=== PATIENT | female | born 1970 | race Caucasian/White ===

== ENCOUNTER 2017-06-17 08:22 | Day surgery (SDC) | payer OTHER ==
[2017-06-16 10:57] VITALS: BMI 39.4
--- NOTE | 2017-06-17 11:20 | HP ---
Past Medical History - Primary Care Physician PCP:: Venu Smith - Admission Chief Complaint: 41yo P1 with menorrhagia admitted for hysteroscopy, D&C History of Present Illness: The pt reports very heavy menses, bleeding through pads and tampons. The menses interfere with her normal/planned activities. History Source: Patient, Medical Record Limitations to Obtaining History: No Limitations - Past Medical History PARAMEDICAL AIDE: No: Alzheimer's, CVA, Dementia, Migraine, Multiple Sclerosis, Peripheral Neuropathy, Parkinson's, Seizure, Syncope, TIA, Vertigo, Other Cardiovascular: No: AFIB, Aneurysm, Aortic Insufficiency, Aortic Stenosis, CAD, CHF, Deep Vein Thrombosis, HTN, Hyperlipdemia, [place], Mitral Insufficiency, Mitral Stenosis, Murmur, Pulmonary Hypertension, Other Pulmonary: Yes: Asthma Gastrointestinal: No: Ascites, Cancer, Constipation, Crohn's Disease, Diverticulitis, Diverticulosis, Esophageal Varices, Gastritis, GERD, GI Bleed, Hemorrhoids, Hiatal Hernia, Inflamatory Bowel Disease, Irritable Bowel Disease, Pancreatitis, Peptic Ulcer Disease, Ulcerative Colitis, Other Hepatobiliary: No: Cirrhosis, Cholelithiasis, Cholecystitis, Choledocholithiasis , Hepatitis A, Hepatitis B, Hepatitis C, Other Renal/: No: Renal Failure, Renal Inusuff, BPH, Cancer, Hematuria, Hemodialysis , Neurogenic Bladder, Renal Calculi, UTI, Other Reproductive: Yes: Fibroids ...: 3 ...Para: 1 () ...Spon : 1 ...Induced : 1 Heme/Onc: No: Anemia, B12 Deficiency, Bleeding Disorder, Cancer, Current Chemotherapy, Current Radiation Therapy, Hemochromatosis, Hypercoaguable State, Myeloproliferative Synd, Sickle Cell Disease, Sickle Cell Trait, Thrombocytopenia, Other Infectious Disease: No: AIDS, C-Diff, Herpes Zoster, HIV, MRSA, STD's, Tuberculosis, VREF, Other Psych: No: Addictions, Anxiety, Bipolar, Depression, Panic, Psychosis, Schizophrenia, Other Musculoskeletal: No: Bursitis, Chronic low back pain, Hemiparesis, Hemiplegia, Osteoarthritis, Paraplegia, Other Rheumatology: No: Fibromyalgia, Gout, Lupus, Rheumatoid Arthritis, Sarcoidosis, Vasculitis, Other ENT: No: Allergic Rhinitis, Sinusitis, Other Endocrine: No: Prashanth's Disease, Williamson's Disease, Diabetes Insipidus, Diabetes Mellitus, Hyperparathyroidism, Hyperthyroidism, Hypothyroidism, Osteopenia, SIADH, Other Dermatology: No: Basal Cell, Cellulitis, Eczema, Melanoma, Psoriasis, Squamous Cell, Other Additional Medical History: Obesity, glaucoma - Past Surgical History Past Surgical History: Yes: Bariatric Surgery (gastric sleeve, Breast reduction , BTL, Abdominoplasty), Hx Myomectomy: No Hx Transabdominal Cerclage: No - Smoking History Smoking history: Former smoker Have you smoked in the past 12 months: No If you are a former smoker, when did you quit?: 15YRS AGO - Alcohol/Substance Use Hx Alcohol Use: Yes (OCCAS) History of Substance Use: reports: None - Social History ADL: 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 of Recent Travel: No Home Medications - Allergies Allergies/Adverse Reactions: Allergies Allergy/AdvReac Type Severity Reaction Status Date / Time No Known Allergies Allergy Verified 06/17/17 08:57 - Home Medications Home Medications: Ambulatory Orders Bimatoprost [Lumigan] 1 drop OU HS 01/14/14 Family Disease History - Family Disease History Family Disease History: Diabetes: Mother (Breast cancer at 64), CA: Father ( renal cancer), Mother, Respiratory: Father Review of Systems - Review of Systems Constitutional: reports: No Symptoms Eyes: reports: No Symptoms HENT: reports: No Symptoms Neck: reports: No Symptoms Cardiovascular: reports: No Symptoms Respiratory: reports: Orthopnea Gastrointestinal: reports: No Symptoms Genitourinary: reports: No Symptoms Breasts: reports: No Symptoms Reported Musculoskeletal: reports: No Symptoms Integumentary: reports: No Symptoms Neurological: reports: No Symptoms Endocrine: reports: No Symptoms Hematology/Lymphatic: reports: No Symptoms Psychiatric: reports: No Symptoms Pain Intensity: 0 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 Vital Signs: Vital Signs Temperature 97.3 F L 06/17/17 08:56 Pulse Rate 63 06/17/17 08:56 Respiratory Rate 20 06/17/17 08:56 Blood Pressure 139/85 06/17/17 08:56 O2 Sat by Pulse Oximetry (%) 100 06/17/17 08:55 Constitutional: Yes: Well Nourished, No Distress, Calm Eyes: Yes: WNL, Conjunctiva Clear HENT: Yes: WNL, Atraumatic, Normocephalic Neck: Yes: WNL, Supple, Trachea Midline Cardiovascular: Yes: WNL, Regular Rate and Rhythm Respiratory: Yes: WNL, Regular, CTA Bilaterally Gastrointestinal: Yes: WNL, Normal Bowel Sounds, Soft, Abdomen, Obese ...Rectal Exam: Yes: Deferred Renal/: Yes: WNL Pelvis: Yes: WNL External Genitalia: Yes: Normal Internal Exam Deferred: No Vaginal Exam: Yes: Normal Cervix: Yes: Normal Uterus: Yes: Normal Adnexa: Normal: Left, Right Breast(s): Yes: WNL Musculoskeletal: Yes: WNL Extremities: Yes: WNL Integumentary: Yes: WNL Neurological: Yes: WNL, Alert, Oriented ...Motor Strength: WNL Psychiatric: Yes: WNL, Alert, Oriented Imaging - Results Ultrasound: Report Reviewed Assessment/Plan 41yo P1 with menorrhagia admitted for hysteroscopy, D&C. We had discussed the risks, benefits, alternatives of surgery at length including but not limited to infection, bleeding, scarring, perforation, amenorrhea, infertility, hysterectomy, etc. The pt verbalized understanding and requested to proceed with surgery. I emphasized that all surgeries have risks and no guarantees can be provided
[2017-06-17] MEDS ORDERED: MIDAZOLAM HCL 2 MG/2 ML SINGLE DOSE VIAL ONE ×2 (11:36)
[2017-06-17] MEDS ORDERED: PROPOFOL 20 ML ONE ×3 (11:36)
[2017-06-17] MEDS ORDERED: ceFAZolin SODIUM 1 GM VIAL IVPB ONE (11:58)
[2017-06-17] MEDS ORDERED: oxyCODONE HCL 5 MG TABLET PO PRN (12:24)
[2017-06-17] MEDS ORDERED: ONDANSETRON 4 MG/2 ML VIAL IVPUSH PRN (12:24)
[2017-06-17] MEDS ORDERED: PROMETHAZINE HCL 25 MG/1 ML VIAL IVPUSH PRN (12:24)
[2017-06-17] MEDS ORDERED: LACTATED RINGERS SOLUTION 1,000 ML IV SCH (12:30)
[2017-06-17] MEDS ORDERED: KETOROLAC TROMETHAMINE 30 MG/1 ML VIAL ONE (13:52)
[2017-06-17] MEDS ORDERED: NEOSTIGMINE METHYLSULFATE 0.5 MG/ML - 10 ML MDV ONE (13:53)
[2017-06-17] MEDS ORDERED: GLYCOPYRROLATE 0.2 MG/1 ML VIAL ONE (13:53)
[2017-06-17 14:22] VITALS: TEMP 98.2
--- NOTE | 2017-06-17 14:53 | OP ---
Operative Note - Note: Operative Date: 06/17/17 Pre-Operative Diagnosis: Menorrhagia, fibroid uterus Operation: Hysteroscopy, D&C Findings: Enlarged uterine cavity w/o lesions. Post-Operative Diagnosis: Same as Pre-op Surgeon: Venu Smith Anesthesiologist/BACK TENDER FOURDRINIER: Samuel Scott Anesthesia: General Specimens Removed: Endometrial curettings Estimated Blood Loss (mls): 5 Blood Volume Replaced (mls): 0 Fluid Volume Replaced (mls): 800 Operative Report Dictated: Yes
[2017-06-17 15:00] VITALS: BP 149/70; PULSE 66
--- NOTE | 2017-06-17 17:29 | OP ---
DATE OF OPERATION: 06/17/2017 PREOPERATIVE DIAGNOSIS: Menorrhagia, fibroid uterus. POSTOPERATIVE DIAGNOSIS: Menorrhagia, fibroid uterus. PROCEDURE: Hysteroscopy, dilation and curettage. SURGEON: Han Buckley M.D. ANESTHESIOLOGIST: Samuel Scott M.D. ANESTHESIA: General. COMPLICATIONS: None. PATHOLOGY: Endometrial curettings. ESTIMATED BLOOD LOSS: 5 mL. URINE OUTPUT: Not counted. INTRAVENOUS FLUIDS: 800 mL. COMPLICATIONS: None. FINDINGS: Examination under anesthesia revealed a slightly enlarged anteverted uterus with no pelvic or adnexal masses. The examination under anesthesia was limited by patient's obesity and history of prior abdominal surgeries. Hysteroscopy revealed a slightly enlarged endometrial cavity with no lesions noted. Endometrial cavity sounded 9 cm. PROCEDURE: The patient was met preoperatively. Risks, benefits, and alternatives of surgery were discussed in detail. All questions were answered. The patient was then brought to the OR with the IV running. She was placed on the surgical table in the supine position. General anesthesia was achieved without difficulty. The patient was then placed in a dorsal lithotomy position using adjustable Butch stirrups. The patient was examined under anesthesia with the findings as described above. The patient was then prepped and draped in the usual sterile fashion. A timeout procedure was conducted as per standard protocol. A weighted speculum was introduced inside the patient's vagina with good visualization of the cervix. The anterior cervical lip was grasped with a single-tooth tenaculum. The cervical os was parous and did not need to be dilated. A 5-mm hysteroscope was introduced inside the endometrial cavity without complications. A normal endometrial cavity that appeared to be slightly enlarged in size was noted. There were no endometrial lesions. The hysteroscope was removed. The uterine cavity was sounded to 9 cm. The uterine curettage was then performed without complications. The tissue was sent to pathology for evaluation. All of the instruments were then removed from the patient upon completion of the procedure. Good hemostasis was noted. Sponge, lap, and needle counts are correct. The patient was transferred to recovery room awake and in stable condition. HAN BUCKLEY M.D. [id number]
--- NOTE | 2017-06-21 12:51 | PATH ---
Surgical Pathology Report Patient Name: ROZ HANNA [facility]. Rec. #: [id number] /Age/Gender: 1970 (Age: 47) / F Account: [id number] Location: [facility] SURGICAL Taken: 06/17/2017 Received: 06/17/2017 Reported: 06/21/2017 Physicians: Venu Smith M.D. Specimen(s) Received ENDOMETRIAL CURETTINGS Clinical History Menorrhagia Final Diagnosis ENDOMETRIUM, CURETTAGE: POLYPOID AND NON-POLYPOID FRAGMENTS OF DYSSYNCHRONOUS ENDOMETRIUM WITH STROMAL BREAKDOWN CHANGES. FRAGMENTS OF BENIGN SMOOTH MUSCLE. Electronically Signed Geoffrey Pedroza M.D. Gross Description Received in formalin labeled "endometrial curettings" is a 4.5 x 3.8 x 0.3 cm aggregate of duffy-red soft tissue fragments. The formalin is filtered and the specimen is entirely submitted in one cassette. /06/17/201706/17/2017
== END 2017-06-17 15:04 | disposition home or self-care (01) ==
LOC: JASU-SURG 08:22
PROVIDERS: ATTEND Obstetrics & Gynecology
PROC: 0UDB8ZX Extraction of Endometrium, Via Natural or Artificial Opening Endoscopic, Diagnostic (ICD-10-PCS; principal; 2017-06-17 10:00)
DX: N92.0 Excessive and frequent menstruation with regular cycle (principal); D25.9 Leiomyoma of uterus, unspecified
CPT/HCPCS: 84703; 88305-TC; 94760

== ENCOUNTER 2017-11-07 06:39 | Day surgery (SDC) | payer OTHER ==
[2017-11-04 09:51] VITALS: BMI 39.4
[2017-11-07] MEDS ORDERED: PROPOFOL 20 ML ONE ×2 (08:51→08:53)
[2017-11-07] MEDS ORDERED: MIDAZOLAM HCL 2 MG/2 ML SINGLE DOSE VIAL ONE (08:52)
[2017-11-07] MEDS ORDERED: LIDOCAINE HCL/PF 2% SDV 5ML VIAL ONE (08:53)
--- NOTE | 2017-11-07 09:10 | HP ---
Past Medical History - Primary Care Physician PCP:: Venu Smith - Admission Chief Complaint: 47yo female with menorrhagia admitted for endometrial ablation. History of Present Illness: She had a D&C but the menses are still heavy. The pt is requesting further tx. 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: No: Alzheimer's, CVA, Dementia, Migraine, Multiple Sclerosis, Peripheral Neuropathy, Parkinson's, Seizure, Syncope, TIA, Vertigo, Other Cardiovascular: No: AFIB, Aneurysm, Aortic Insufficiency, Aortic Stenosis, CAD, CHF, Deep Vein Thrombosis, HTN, Hyperlipdemia, NE, Mitral Insufficiency, Mitral Stenosis, Murmur, Pulmonary Hypertension, Other Pulmonary: Yes: Asthma Gastrointestinal: No: Ascites, Cancer, Constipation, Crohn's Disease, Diverticulitis, Diverticulosis, Esophageal Varices, Gastritis, GERD, GI Bleed, Hemorrhoids, Hiatal Hernia, Inflamatory Bowel Disease, Irritable Bowel Disease, Pancreatitis, Peptic Ulcer Disease, Ulcerative Colitis, Other Hepatobiliary: No: Cirrhosis, Cholelithiasis, Cholecystitis, Choledocholithiasis , Hepatitis A, Hepatitis B, Hepatitis C, Other Renal/: No: Renal Failure, Renal Inusuff, BPH, Cancer, Hematuria, Hemodialysis , Neurogenic Bladder, Renal Calculi, UTI, Other ...: 3 ...Para: 1 ...Spon : 1 ...Induced : 1 Heme/Onc: No: Anemia, B12 Deficiency, Bleeding Disorder, Cancer, Current Chemotherapy, Current Radiation Therapy, Hemochromatosis, Hypercoaguable State, Myeloproliferative Synd, Sickle Cell Disease, Sickle Cell Trait, Thrombocytopenia, Other Infectious Disease: No: AIDS, C-Diff, Herpes Zoster, HIV, MRSA, STD's, Tuberculosis, VREF, Other Psych: No: Addictions, Anxiety, Bipolar, Depression, Panic, Psychosis, Schizophrenia, Other Musculoskeletal: No: Bursitis, Chronic low back pain, Hemiparesis, Hemiplegia, Osteoarthritis, Paraplegia, Other Rheumatology: No: Fibromyalgia, Gout, Lupus, Rheumatoid Arthritis, Sarcoidosis, Vasculitis, Other ENT: No: Allergic Rhinitis, Sinusitis, Other Endocrine: No: Harlan's Disease, Lisbeth's Disease, Diabetes Insipidus, Diabetes Mellitus, Hyperparathyroidism, Hyperthyroidism, Hypothyroidism, Osteopenia, SIADH, Other Dermatology: No: Basal Cell, Cellulitis, Eczema, Melanoma, Psoriasis, Squamous Cell, Other Additional Medical History: Obesity, glaucoma - Past Surgical History Past Surgical History: Yes: Bariatric Surgery (gastric sleeve, Breast reduction , BTL, Abdominoplasty), Hx Myomectomy: No Hx Transabdominal Cerclage: No - Smoking History Smoking history: Former smoker Have you smoked in the past 12 months: No If you are a former smoker, when did you quit?: 15YRS AGO - Alcohol/Substance Use Hx Alcohol Use: Yes (OCCAS) History of Substance Use: reports: None - Social History 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: 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 of 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 Travel: No Home Medications - Allergies Allergies/Adverse Reactions: Allergies Allergy/AdvReac Type Severity Reaction Status Date / Time No Known Allergies Allergy Verified 11/07/17 07:14 - Home Medications Home Medications: Ambulatory Orders Bimatoprost [Lumigan] 1 drop OU HS 01/14/14 Family Disease History - Family Disease History Family Disease History: Diabetes: Mother (Breast cancer at 64), CA: Father ( renal cancer), Mother, Respiratory: Father Review of Systems - Review of Systems Constitutional: reports: No Symptoms Eyes: reports: No Symptoms HENT: reports: No Symptoms Neck: reports: No Symptoms Cardiovascular: reports: No Symptoms Respiratory: reports: No Symptoms Gastrointestinal: reports: No Symptoms Genitourinary: reports: No Symptoms Breasts: reports: No Symptoms Reported Musculoskeletal: reports: No Symptoms Integumentary: reports: No Symptoms Neurological: reports: No Symptoms Endocrine: reports: No Symptoms Hematology/Lymphatic: reports: No Symptoms Psychiatric: reports: No Symptoms Pain Intensity: 0 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 Vital Signs: Vital Signs Temperature 98.4 F 11/07/17 07:15 Pulse Rate 59 L 11/07/17 07:15 Respiratory Rate 16 11/07/17 07:15 Blood Pressure 146/78 11/07/17 07:15 O2 Sat by Pulse Oximetry (%) 98 11/07/17 07:15 Constitutional: Yes: Well Nourished, No Distress, Calm, Obese Eyes: Yes: WNL, Conjunctiva Clear HENT: Yes: WNL, Atraumatic, Normocephalic Neck: Yes: WNL, Supple, Trachea Midline Cardiovascular: Yes: WNL, Regular Rate and Rhythm Respiratory: Yes: WNL, Regular, CTA Bilaterally Gastrointestinal: Yes: WNL, Normal Bowel Sounds, Soft, Abdomen, Obese, Other ( old scars) ...Rectal Exam: Yes: Deferred Renal/: Yes: WNL Pelvis: Yes: WNL External Genitalia: Yes: Normal Internal Exam Deferred: No Vaginal Exam: Yes: Normal Cervix: Yes: Normal Uterus: Yes: Enlarged Breast(s): Yes: WNL Musculoskeletal: Yes: WNL Extremities: Yes: WNL Edema: No Integumentary: Yes: WNL Neurological: Yes: WNL, Alert, Oriented ...Motor Strength: WNL Psychiatric: Yes: WNL, Alert, Oriented Imaging - Results Ultrasound: Report Reviewed Assessment/Plan 47yo female with menorrhagia admitted for endometrial ablation. We had discussed the risks, benefits, alternatives of surgery at length including but not limited to infection, bleeding, scarring, perforation, amenorrhea, infertility, hysterectomy, etc. We also discussed the specific risks of thermal ablation including thermal injury, and failed ablation. The pt verbalized understanding and requested to proceed with surgery. I emphasized that all surgeries have risks and no guarantees can be provided
[2017-11-07] MEDS ORDERED: ceFAZolin SODIUM 1 GM VIAL ONE (09:22)
[2017-11-07] MEDS ORDERED: ceFAZolin SODIUM 1 GM VIAL IVPB ONE (09:24)
[2017-11-07] MEDS ORDERED: DEXAMETHASONE SOD PHOSPHATE 4 MG/1 ML VIAL ONE (09:25)
[2017-11-07] MEDS ORDERED: KETOROLAC TROMETHAMINE 30 MG/1 ML VIAL ONE (09:53)
[2017-11-07] MEDS ORDERED: ONDANSETRON 4 MG/2 ML VIAL IVPUSH PRN (10:21)
[2017-11-07] MEDS ORDERED: PROMETHAZINE HCL 25 MG/1 ML VIAL IVPUSH PRN (10:21)
[2017-11-07] MEDS ORDERED: LACTATED RINGERS SOLUTION 1,000 ML IV SCH (10:30)
--- NOTE | 2017-11-07 10:38 | OP ---
Operative Note - Note: Operative Date: 11/07/17 Pre-Operative Diagnosis: Menorrhagia Operation: Hysteroscopy, Endometrial Ablation with HTA, D&C Findings: Enlarged uterine cavity w/o lesions Post-Operative Diagnosis: Same as Pre-op Surgeon: Venu Smith Anesthesiologist/EMISSIONS ENGINEER: Mian Chapa Anesthesia: General Specimens Removed: Endometrial curettings Estimated Blood Loss (mls): 10 Drains, Volume Out (mls): 0 Blood Volume Replaced (mls): 0 Fluid Volume Replaced (mls): 600 Operative Report Dictated: Yes
[2017-11-07] MEDS ORDERED: ACETAMINOPHEN INJECTION 100 ML IVPB ONE (10:52)
[2017-11-07] MEDS ORDERED: ACETAMINOPHEN 1000 MG/100 ML VIAL (NON FORMULARY) IVPB ONE ×2 (10:55→10:56)
[2017-11-07 12:26] VITALS: PULSE 60
[2017-11-07] MEDS ORDERED: oxyCODONE HCL 5 MG TABLET PO PRN (12:30)
[2017-11-07] MEDS ORDERED: oxyCODONE HCL 5 MG TABLET ONE (12:30)
[2017-11-07 13:15] VITALS: BP 136/56
[2017-11-07 13:35] VITALS: TEMP 98.6
--- NOTE | 2017-11-07 18:53 | OP ---
DATE OF OPERATION: 11/07/2017 PREOPERATIVE DIAGNOSIS: Menorrhagia. POSTOPERATIVE DIAGNOSIS: Menorrhagia. PROCEDURE: Hysteroscopy, endometrial ablation with , dilation and curettage. SURGEON: Han Buckley M.D. ANESTHESIOLOGIST: Mian Chapa M.D. ANESTHESIA: General. COMPLICATIONS: None. ESTIMATED BLOOD LOSS: 10 mL. INTRAVENOUS FLUIDS: 600 mL of crystalloids. PATHOLOGY: Endometrial curettings. FINDINGS: Examination under anesthesia revealed a slightly enlarged anteverted uterus with no pelvic or adnexal masses. Hysteroscopy revealed a normal but slightly enlarged uterine cavity with no lesions, uncomplicated hysteroscopy procedure was performed without complications. COMPLICATIONS: None. PROCEDURE: The patient was met preoperatively. Risks, benefits, and alternatives of surgery were discussed with patient at length. The patient verbalized her understanding and requested to proceed with surgery. The consent form was reviewed and signed. The patient was then brought to the OR with IV running. She was placed on the surgical table in a supine position. General anesthesia was achieved without difficulty. The patient was then placed in a dorsal lithotomy position with adjustable Butch stirrups. She was examined under anesthesia with the findings as described above. The timeout procedure was then conducted as per standard protocol. The patient was prepped and draped in the usual sterile fashion. The cervix was visualized and grasped with a single-toothed tenaculum . The cervical os was dilated to accommodate a size 25 Bobo dilator. A diagnostic hysteroscopy was then performed with the findings as described above. The diagnostic hysteroscopy was completed, and the endometrial ablation was initiated. The entire endometrial ablation was performed under direct hysteroscopic visualization without complications. There was no fluid loss noted during the procedure. The endometrial ablation was completed uneventfully. The hysteroscope was removed from the patient. Endometrial curettage was then performed, and the tissue was sent to pathology for evaluation. Good hemostasis was noted. All of the instruments were removed from the patient. Sponge, lap, needle counts were correct. The patient was transferred to recovery room in stable condition. HAN BUCKLEY M.D. [id number]
--- NOTE | 2017-11-08 15:24 | PATH ---
Surgical Pathology Report Patient Name: ROZ HANNA [facility] Rec. #: [id number] /Age/Gender: 1970 (Age: 47) / F Account: [id number] Location: [facility] SURGICAL Taken: 11/07/2017 Received: 11/07/2017 Reported: 11/08/2017 Physicians: Venu Smith M.D. Specimen(s) Received ENDOMETRIAL CURETTINGS Clinical History Excessive and frequent menstruation with regular cycle, fibroid uterus Final Diagnosis ENDOMETRIAL CURETTINGS, DILATATION AND CURETTAGE: FRAGMENTS OF DYSSYNCHRONOUS ENDOMETRIUM WITH STROMAL BREAKDOWN, LOWER UTERINE SEGMENT, SUPERFICIAL MYOMETRIUM, AND BENIGN ENDOCERVICAL TISSUE. Electronically Signed Debbie De Jesus M.D. Gross Description Received in formalin labeled "endometrial curettings," is a 3.5 x 2.3 x 0.4 cm aggregate of duffy-brown soft tissue fragments admixed with blood clot. The formalin is filtered and the specimen is entirely submitted in 2 cassettes. /11/07/2017 saudi/11/07/2017
== END 2017-11-07 13:19 | disposition home or self-care (01) ==
LOC: JASU-SURG 06:39
PROVIDERS: ATTEND Obstetrics & Gynecology
PROC: 0U5B8ZZ Destruction of Endometrium, Via Natural or Artificial Opening Endoscopic (ICD-10-PCS; principal; 2017-11-07 09:00)
PROC: 0UDB8ZX Extraction of Endometrium, Via Natural or Artificial Opening Endoscopic, Diagnostic (ICD-10-PCS; 2017-11-07 09:00)
DX: N92.0 Excessive and frequent menstruation with regular cycle (principal)
CPT/HCPCS: 36415; 84702; 86850; 86900; 86901; 94760